=== PATIENT | female | born 1965 | race Caucasian/White ===

== ENCOUNTER 2024-11-22 09:58 | Outpatient (RCR) | payer MEDICAID, SELFPAY ==
--- NOTE | 2024-11-28 00:27 | CTCCONSULT_ITS ---
Patient: TYE ARREGUIN : 1965 MR#: [id number] Page 4 of 5 CONSULTATION NOTE DATE OF CONSULTATION: 11/22/2024 NAME: TYE ARREGUIN ACCOUNT: [id number] : 1965 AGE: 59 REFERRING PHYSICIAN: Madian Correa MD PRIMARY PHYSICIAN: REASON FOR VISIT: Recurrence of right breast mass ONCOLOGY HISTORY: DIAGNOSIS: Neoplasm of unspecified behavior of breast [ICD10] D49.3 DATE OF DIAGNOSIS: 10/27/2022 STAGE/TNM: T3 NX MX now with recurrence stage unknown TREATMENT HISTORY: Care?Plan Start?Date Cycle Day Intent HISTORY OF PRESENT ILLNESS: 59-year-old female is presenting with a large breast mass. Patient says that she initially had breast cancer in 2022 and at that time underwent a lumpectomy with Dr. Serra. Patient did follow-up with some oncologist but she never followed the instructions or recommendations for chemotherapy or radiation. Patient has noticed recurrence of the tumor about a year ago and has been progressively growing. Patient was never offered antiendocrine therapy per her but patient's compliance is very poor OTHER MEDICAL HISTORY/CONDITIONS: Infiltrating ductal carcinoma - dx 10/27/22 Mild HTN Right breast lumpectomy - 10/27/22 - Dr. Somers FAMILY HISTORY: Patient?denies?family?cancer?history. SOCIAL HISTORY: Occupational?History:?[employer] Education?Level:?Completed High School Marital?Status:? 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 anastrozole - 1 mg 1 tab Daily 2. Ativan - 1 mg 1 tab twice Daily 3. Hair, Skin and Nails (biotin) - 10,000 mcg 1 tab Daily 4. multivitamin - 1 tab Daily 5. Vitamin C - 1,000 mg 1 tab Daily 6. Vitamin D - 5,000 unit 1 tab Daily Medications Last Reconciled by Oriana Lowery RN on 11/22/2024 ALLERGIES: No Known Drug Allergies REVIEW OF SYSTEMS: A complete 14-point review of systems was performed and is negative except as noted in interval history. PHYSICAL EXAMINATION: VITAL SIGNS: Height?62?inches, Oxygen?Saturation?98% Weight?123?lbs PAIN: 0 - No pain ECOG Performance Status: 2 - Symptomatic; ambulatory; capable of self-care; >50% of waking hrs. not in bed GENERAL APPEARANCE: Appears well, in no apparent distress, appropriately interactive. HEENT: Normocephalic, no temporal wasting, normal conjunctiva, no scleral icterus, normal hearing, lips without lesions, neck normal range of motion. CARDIOVASCULAR: Not assessed. PULMONARY: Normal respiratory effort, no respiratory distress or use of accessory muscles, speaking in full sentences, no tachypnea. EXTREMITIES: No pedal edema or cyanosis. SKIN: Normal skin appearance. NEUROLOGIC: Alert and oriented x4. PSHYCHIATRIC: Appropriate affect, mood normal, behavior normal, intact thought and speech. Breast examination revealed at least 8 x 8 cm right breast mass with stretching and thickening of the skin over the lesion. There is no break in the skin of the breast. LABORATORY DATA: I have personally reviewed and interpreted each of Ms. Arreguin?s relevant lab tests, abnormal findings are below: Date ASSESSMENT/PLAN: Recurrence of the breast mass Patient likely have breast cancer recurrence Patient's last breast mass was ER/UT positive UT positive and HER2 low 1+ Will start patient on anastrozole FRANCOIS Advised to follow-up with interventional radiology and breast surgeon for possible biopsy Breast mass is freely mobile even though it is a larger lesion She will benefit from neoadjuvant chemotherapy If patient is found to have metastatic disease and its ER/UT positive then can do CDK therapy I need biopsy with the receptor result to make recommendations on the treatment Also needs staging scan Will start anastrozole pending all the above Extensively counseled patient that she need to be compliant for therapy ORDERS: Order # Description [id number] CT Scan + Chest + Abdomen and Pelvis + With W/O Contrast [id number] Comprehensive Metabolic Panel - 12 + CBC with Auto Diff [id number] MD Follow Up 4 Week [id number] MRI RETURN TO CLINIC: I reviewed the diagnosis, prognosis, and recommended treatment/procedure options with the patient (and/or their legal field representative), including the potential benefits, risks, side effects and alternative therapies. We also discussed the option of no treatment and the possibility of clinical trial participation, if applicable. All questions were addressed, and they demonstrated understanding. They provided informed consent to proceed with the proposed plan of care. BILLING AND COMPLIANCE: I reviewed external records from providers outside my specialty as summarized above. I spent a total of 50 minutes on this patient?s care on the day of their visit excluding time spent related to any billed procedures. This time includes time spent with the patient as well as time spent documenting in the medical record, reviewing patients records and tests, obtaining history, placing orders, communicating with other healthcare professionals, counseling the patient, family or caregiver, and/or care coordination for the diagnoses above. Electronically Signed by: Luiz Colunga MD T: 12:25 AM CC: PCP: Referring: Madina Correa This document was completed utilizing speech recognition software. Grammatical errors, random word insertions, pronoun errors, and incomplete sentences are an occasional consequence of this system due to software limitations, ambient noise, and hardware issues. Any formal questions or concerns about the content, text or information contained within the body of this dictation should be directly addressed to the provider for clarification.
== END 2024-11-29 23:59 | disposition home or self-care (01) ==
LOC: SCTC 09:58
PROVIDERS: PCP Physician Assistant; Referring Provider Physician Assistant; Visit Provider Internal Medicine Hematology & Oncology
DX: C50.411 Malignant neoplasm of upper-outer quadrant of right female breast (principal); Z17.0 Estrogen receptor positive status [ER+]; Z17.21 Progesterone receptor positive status; Z17.32 Human epidermal growth factor receptor 2 negative status; Z90.11 Acquired absence of right breast and nipple
CPT/HCPCS: 99213; G0463